=== PATIENT | female | born 1985 | race Caucasian/White ===

== ENCOUNTER 2017-02-03 18:31 | Emergency (ER) | payer OTHER ==
[~2017-02-03] VITALS: Ht 167.6 cm; Wt 102.0 kg
[~2017-02-03 18:31] MED LIST: AZIT500T2 PO; IBUP-2029
[2017-02-03 18:38] VITALS: BP 130/75
== END 2017-02-03 20:45 | disposition left against medical advice (07) ==
LOC: ER 18:38
DX: R10.9 Unspecified abdominal pain (principal); Z53.21 Procedure and treatment not carried out due to patient leaving prior to being seen by health care provider

== ENCOUNTER 2017-04-01 10:41 | Emergency (ER) | payer OTHER ==
[~2017-04-01] VITALS: Ht 167.6 cm; Wt 100.0 kg
[2017-04-01] MEDS ORDERED: SODIUM CHLORIDE 0.9% 1,000 ML IV ONE (11:35)
[2017-04-01] MEDS ORDERED: MORPHINE SULFATE 4 MG/ML CPJ (NOT FOR IM USE) IV ONE (11:45)
[2017-04-01] MEDS ORDERED: ONDANSETRON HCL 4MG/2ML VIAL IV ONE (11:45)
[2017-04-01 12:07] LABS: BASOPHILS % 0.5 % (0.0-2.0); EOSINOPHILS % 1.4 % (0.0-5.0); HEMATOCRIT. 37.5 % (36.0-48.0); HEMOGLOBIN. 12.7 g/dL (12.0-16.0); LYMPHOCYTES % 21.2 % (20.0-50.0); MEAN CORPUSCULAR HEMOGLOBIN 28.6 pg (28.0-32.0); MEAN PLATELET VOLUME 7.6 fl (7.4-10.4); MONOCYTES % 5.2 % (2.0-8.0); NEUTROPHILS % 71.7 % (40.0-76.0); PLATELET 371 x1000/uL (130-400); RED BLOOD CELL COUNT 4.46 mill/uL (4.2-5.4); RED CELL DISTRIBUTION WIDTH 14.1 % (11.6-14.6)
[2017-04-01 12:21] LABS: PARTIAL THROMBOPLASTIN TIME 27.3 sec (23.4-31.0); PROTHROMBIN TIME 10.6 sec (9.4-11.6)
[2017-04-01 12:22] LABS: CARBON DIOXIDE 27 mEq/L (21-32); CHLORIDE 102 mEq/L (98-107); TROPONIN I < 0.02 ng/mL (0.00-0.04)
[2017-04-01 12:23] LABS: UCG SCREEN NEGATIVE
[2017-04-01] MEDS ORDERED: KETOROLAC 15MG/ML VIAL IV ONE (15:15)
[2017-04-01] MEDS ORDERED: ONDANSETRON HCL 4MG/2ML VIAL IM ONE (15:15)
[2017-04-01 17:20] VITALS: BP 129/76
== END 2017-04-01 17:52 | disposition home or self-care (01) ==
LOC: ER 12:00
DX: R51 Headache (principal)
CPT/HCPCS: 36415; 70450; 71010; 80053; 81025; 83690; 84484; 85025; 85610; 85730; 93005; 96361; 96372; 96374; 96375; 99285; J1885; J2270; J2405; J7030; Z7610

== ENCOUNTER 2017-06-10 20:27 | Emergency (ER) | payer OTHER ==
[~2017-06-10] VITALS: Ht 167.6 cm; Wt 107.0 kg
[2017-06-10 20:30] VITALS: BP 125/79
[2017-06-10] MEDS ORDERED: DIPHENHYDRAMINE 50MG CAPSULE PO ONE (21:30)
== END 2017-06-10 22:11 | disposition home or self-care (01) ==
LOC: ER 21:34
DX: L03.113 Cellulitis of right upper limb (principal); L03.115 Cellulitis of right lower limb
CPT/HCPCS: 81025; 99283; Q0163

== ENCOUNTER 2017-07-24 16:04 | Emergency (ER) | payer OTHER ==
[~2017-07-24] VITALS: Ht 167.6 cm; Wt 104.0 kg
[2017-07-24 23:30] VITALS: BP 116/83
== END 2017-07-25 00:33 | disposition home or self-care (01) ==
LOC: ER 16:43
DX: T63.301A Toxic effect of unspecified spider venom, accidental (unintentional), initial encounter (principal); F41.0 Panic disorder [episodic paroxysmal anxiety]; W57.XXXA Bitten or stung by nonvenomous insect and other nonvenomous arthropods, initial encounter; Y93.89 Activity, other specified; Y92.89 Other specified places as the place of occurrence of the external cause; Y99.8 Other external cause status
CPT/HCPCS: 81025; 93005; 99283

== ENCOUNTER 2017-10-04 07:06 | Emergency (ER) | payer OTHER ==
[~2017-10-04] VITALS: Ht 167.6 cm; Wt 95.0 kg
[2017-10-04] MEDS ORDERED: ACETAMINOPHEN WITH CODEINE 120-12MG/5ML UDC PO ONE (08:15)
[2017-10-04] MEDS ORDERED: PENICILLIN G BENZATHINE 1,200,000 UNITS/2ML SYR IM ONE (08:15)
[2017-10-04] MEDS ORDERED: DEXAMETHASONE 10 MG/ML VIAL IM ONE (08:15)
[2017-10-04 08:28] VITALS: BP 134/88
== END 2017-10-04 08:30 | disposition home or self-care (01) ==
LOC: ER 07:51
DX: J02.9 Acute pharyngitis, unspecified (principal); Z98.890 Other specified postprocedural states
CPT/HCPCS: 81025; 96372; 99284; J0561; J1100

== ENCOUNTER 2017-10-12 11:38 | Emergency (ER) | payer OTHER ==
[~2017-10-12] VITALS: Ht 167.6 cm; Wt 102.0 kg
[2017-10-12 12:32] VITALS: BP 133/81
[2017-10-12] MEDS ORDERED: ACETAMINOPHEN 325MG TABLET PO ONE (12:45)
== END 2017-10-12 13:46 | disposition home or self-care (01) ==
LOC: ER 12:41
DX: S00.03XA Contusion of scalp, initial encounter (principal); Z98.890 Other specified postprocedural states; W22.03XA Walked into furniture, initial encounter; Y93.89 Activity, other specified; Y92.018 Other place in single-family (private) house as the place of occurrence of the external cause
CPT/HCPCS: 99282

== ENCOUNTER 2018-02-19 07:52 | Emergency (ER) | payer OTHER ==
[~2018-02-19] VITALS: Ht 172.7 cm; Wt 91.0 kg
[2018-02-19 07:56] VITALS: BP 150/95
[2018-02-19] MEDS ORDERED: KETOROLAC 30MG/ML VIAL IV ONE (08:15)
[2018-02-19] MEDS ORDERED: ACETAMINOPHEN WITH CODEINE 300/30MG TABLET PO ONE (08:15)
[2018-02-19] MEDS ORDERED: BACITRACIN ZINC 15GM TUBE TOP ONE (08:15)
== END 2018-02-19 09:30 | disposition home or self-care (01) ==
LOC: ER 07:52
DX: S10.81XA Abrasion of other specified part of neck, initial encounter (principal); M25.561 Pain in right knee; R03.0 Elevated blood-pressure reading, without diagnosis of hypertension; M25.571 Pain in right ankle and joints of right foot; V47.5XXA Car driver injured in collision with fixed or stationary object in traffic accident, initial encounter; Y93.89 Activity, other specified; Y92.488 Other paved roadways as the place of occurrence of the external cause
CPT/HCPCS: 71045; 73562; 73610; 81025; 96374; 99284; J1885

== ENCOUNTER 2020-04-04 18:50 | Emergency (ER) | payer OTHER ==
[~2020-04-04] VITALS: Ht 167.6 cm; Wt 104.0 kg
[2020-04-04 21:16] LABS: BASOPHILS % 0.3 % (0.0-2.0); EOSINOPHILS % 1.7 % (0.0-5.0); HEMATOCRIT. 40.6 % (36.0-48.0); HEMOGLOBIN. 13.7 g/dL (12.0-16.0); LYMPHOCYTES % 29.6 % (20.0-50.0); MEAN CORPUSCULAR HEMOGLOBIN 28.2 pg (28.0-32.0); MEAN CORPUSCULAR VOLUME 83.6 fL (81.0-99.0); MEAN PLATELET VOLUME 7.9 fl (7.4-10.4); MONOCYTES % 5.6 % (2.0-8.0); NEUTROPHILS % 62.8 % (40.0-76.0); PLATELET 363 x1000/uL (130-400); RED BLOOD CELL COUNT 4.85 mill/uL (4.2-5.4); RED CELL DISTRIBUTION WIDTH 14.3 % (11.6-14.6)
[2020-04-04 21:20] LABS: CHLORIDE 101 mEq/L (98-107)
[2020-04-04 21:23] LABS: HCG SCREEN NEGATIVE
[2020-04-04 21:41] LABS: PROTHROMBIN TIME 10.5 sec (9.6-11.0)
[2020-04-04 22:36] VITALS: BP 132/83
== END 2020-04-04 22:37 | disposition home or self-care (01) ==
LOC: ER 18:50
DX: R00.2 Palpitations (principal); Z98.890 Other specified postprocedural states
CPT/HCPCS: 36415; 71045; 80053; 84484; 84703; 85025; 93005; 99285

== ENCOUNTER 2021-01-29 18:54 | Emergency (ER) | payer OTHER ==
[~2021-01-29] VITALS: Ht 172.7 cm; Wt 90.0 kg
[2021-01-29] MEDS ORDERED: KETOROLAC 60MG/2ML VIAL IM ONE (20:00)
[2021-01-29] MEDS ORDERED: ONDANSETRON 4MG ODT PO ONE (20:00)
[2021-01-29 20:21] VITALS: BP 139/84
[2021-01-29 21:57] LABS: CLARITY URINE CLEAR (CLEAR); COLOR URINE YELLOW (YELLOW); KETONES URINE NEGATIVE (NEGATIVE); LEUKOCYTE ESTERASE URINE 1+ (NEGATIVE); NITRITE URINE NEGATIVE (NEGATIVE); OCCULT BLOOD URINE NEGATIVE (NEGATIVE); PH URINE 6.5 (4.5-8.0); PROTEIN URINE NEGATIVE (NEGATIVE); SPECIFIC GRAVITY URINE 1.017 (1.005-1.030); UROBILINOGEN URINE 0.2 E.U./dL (0.2-1.0)
[2021-01-29] MEDS ORDERED: IBUP-2029 MT (22:03)
[2021-01-29] MEDS ORDERED: ONDA4TAB11 PO (22:03)
== END 2021-01-29 23:00 | disposition home or self-care (01) ==
LOC: ER 18:54
DX: R11.2 Nausea with vomiting, unspecified (principal); B34.8 Other viral infections of unspecified site; Z79.899 Other long term (current) drug therapy; Z20.822 Contact with and (suspected) exposure to COVID-19
CPT/HCPCS: 81003; 87635; 96372; 99283; J1885; Q0162

== ENCOUNTER 2021-06-24 13:22 | Emergency (ER) | payer MEDICAID, OTHER ==
[~2021-06-24] VITALS: Ht 167.6 cm; Wt 100.0 kg
[~2021-06-24 13:22] MED LIST changes: +IBUP-2029 MT; +ONDA4TAB11 PO
[2021-06-24 13:25] VITALS: BP 128/83
[2021-06-24] MEDS ORDERED: PREDNISONE 20MG TABLET PO ONE (13:30)
[2021-06-24] MEDS ORDERED: ALBUTEROL (0.083%) 2.5MG/3ML NEB HHN ONE (13:30)
[2021-06-24 16:09] LABS: BASOPHILS % 0.2 % (0.0-2.0); EOSINOPHILS % 0.3 % (0.0-5.0); HEMATOCRIT. 44.5 % (36.0-48.0); HEMOGLOBIN. 14.7 g/dL (12.0-16.0); LYMPHOCYTES % 21.2 % (20.0-50.0); MEAN CORPUSCULAR HEMOGLOBIN 28.8 pg (28.0-32.0); MEAN PLATELET VOLUME 7.6 fl (7.4-10.4); MONOCYTES % 4.6 % (2.0-8.0); NEUTROPHILS % 73.7 % (40.0-76.0); PLATELET 298 x1000/uL (130-400); RED BLOOD CELL COUNT 5.12 mill/uL (4.2-5.4)
[2021-06-24 16:16] LABS: CHLORIDE 105 mEq/L (98-107)
[2021-06-24] MEDS ORDERED: AZITHROMYCIN 500 MG TABLET PO ONE (16:30)
[2021-06-24] MEDS ORDERED: ACET-2708 MT (16:33)
[2021-06-24] MEDS ORDERED: AZIT500T8 MT (16:33)
[2021-06-24] MEDS ORDERED: P50 MT (16:43)
== END 2021-06-24 18:23 | disposition home or self-care (01) ==
LOC: ER 13:22
DX: J18.9 Pneumonia, unspecified organism (principal); U07.1 COVID-19; Z79.899 Other long term (current) drug therapy
CPT/HCPCS: 36415; 71045; 80048; 81025; 84484; 85025; 85379; 93005; 93970; 94640; 99285; C9803; J7512; U0003; U0005; Z7610

== ENCOUNTER 2021-09-27 14:38 | Emergency (ER) | payer OTHER ==
[~2021-09-27] VITALS: Ht 167.6 cm; Wt 100.0 kg
[~2021-09-27 14:38] MED LIST changes: +ACET-2708 MT; +AZIT500T8 MT; +P50 MT
[2021-09-27] MEDS ORDERED: LIDOCAINE HCL/PF 1% 10 MG/ML 5ML VIAL INFIL ONE (15:00)
[2021-09-27] MEDS ORDERED: LIDOCAINE HCL 1% 20ML VIAL (Pyxis) INJ INFIL NR (15:00)
[2021-09-27] MEDS: TETANUS, DIPHTHERIA, PERTUSSIS VAC/PF 0.5ML (>10YR OLD) IM ONE (15:26)
[2021-09-27] MEDS: IBUPROFEN 600MG TABLET PO ONE (15:28)
[2021-09-27] MEDS: ACETAMINOPHEN 325MG TABLET PO ONE (15:28)
[2021-09-27] MEDS: BACITRACIN ZINC OINT UDPKT TOP ONE (15:29)
[2021-09-27 15:44] VITALS: BP 131/88
== END 2021-09-27 16:00 | disposition home or self-care (01) ==
LOC: ER 14:38
DX: S61.211A Laceration without foreign body of left index finger without damage to nail, initial encounter (principal); X58.XXXA Exposure to other specified factors, initial encounter; Y93.89 Activity, other specified; Y92.89 Other specified places as the place of occurrence of the external cause; Y99.8 Other external cause status
CPT/HCPCS: 99283; A4217; J3490; Z7610

== ENCOUNTER 2022-02-05 23:22 | Emergency (ER) | payer OTHER ==
[~2022-02-05] VITALS: Ht 167.6 cm; Wt 113.8 kg
[2022-02-05] MEDS ORDERED: SODIUM CHLORIDE 0.9% 1,000 ML IV ONE (23:45)
[2022-02-06 00:54] LABS: CLARITY URINE CLEAR (CLEAR); COLOR URINE ORANGE (YELLOW); KETONES URINE NEGATIVE (NEGATIVE); LEUKOCYTE ESTERASE URINE TRACE (NEGATIVE); NITRITE URINE NEGATIVE (NEGATIVE); OCCULT BLOOD URINE 3+ (NEGATIVE); PH URINE 6.5 (4.5-8.0); PROTEIN URINE NEGATIVE (NEGATIVE); SPECIFIC GRAVITY URINE 1.016 (1.005-1.030)
[2022-02-06 01:11] LABS: *AMPHETAMINES SCREEN URINE NEGATIVE (NEGATIVE); *BARBITURATES SCREEN URINE NEGATIVE (NEGATIVE); *BENZODIAZEPINES SCREEN URINE NEGATIVE (NEGATIVE); *COCAINE SCREEN URINE NEGATIVE (NEGATIVE); CANNABINOID URINE SCREEN NEGATIVE (NEGATIVE); METHADONE URINE SCREEN NEGATIVE (NEGATIVE); OPIATES URINE SCREEN NEGATIVE (NEGATIVE); PHENCYCLIDINE URINE SCREEN NEGATIVE (NEGATIVE)
[2022-02-06 01:23] LABS: BASOPHILS % 0.4 % (0.0-2.0); EOSINOPHILS % 2.1 % (0.0-5.0); HEMATOCRIT. 39.7 % (36.0-48.0); HEMOGLOBIN. 12.9 g/dL (12.0-16.0); MEAN CORPUSCULAR HEMOGLOBIN 28.4 pg (28.0-32.0); MEAN CORPUSCULAR VOLUME 87.6 fL (81.0-99.0); MEAN PLATELET VOLUME 7.5 fl (7.4-10.4); MONOCYTES % 4.8 % (2.0-8.0); NEUTROPHILS % 59.7 % (40.0-76.0); PLATELET 325 x1000/uL (130-400); RED BLOOD CELL COUNT 4.54 mill/uL (4.2-5.4); RED CELL DISTRIBUTION WIDTH 13.9 % (11.6-14.6)
[2022-02-06 02:01] LABS: CHLORIDE 106 mEq/L (98-107)
[2022-02-06 02:10] LABS: PROTHROMBIN TIME 10.4 sec (9.6-11.0)
[2022-02-06 02:12] LABS: B-HCG QUANTITATIVE < 1 mIU/mL (<3)
[2022-02-06] MEDS ORDERED: IBUP-2029 MT (02:59)
[2022-02-06] MEDS ORDERED: IBUPROFEN 600MG TABLET PO ONE (03:00)
[2022-02-06 03:15] VITALS: BP 135/86
== END 2022-02-06 04:15 | disposition home or self-care (01) ==
LOC: ER 23:55
DX: N93.8 Other specified abnormal uterine and vaginal bleeding (principal); N83.202 Unspecified ovarian cyst, left side; N85.00 Endometrial hyperplasia, unspecified
CPT/HCPCS: 36415; 76830; 76856; 80053; 80305; 81003; 81025; 84702; 85025; 85610; 86850; 86900; 86901; 99284; J7030

== ENCOUNTER 2022-05-16 00:06 | Emergency (ER) | payer OTHER ==
[~2022-05-16] VITALS: Ht 167.6 cm; Wt 112.3 kg
[2022-05-16] MEDS ORDERED: DIPHENHYDRAMINE 50MG/ML VIAL IV ONE (02:00)
[2022-05-16] MEDS ORDERED: DEXAMETHASONE 10 MG/ML VIAL IV ONE (02:00)
[2022-05-16 02:45] VITALS: BP 140/80
[2022-05-16] MEDS ORDERED: DIPH25TA62 MT (03:13)
[2022-05-16] MEDS ORDERED: PRED10TA MT (03:13)
== END 2022-05-16 04:57 | disposition home or self-care (01) ==
LOC: ER 00:06
DX: L23.3 Allergic contact dermatitis due to drugs in contact with skin (principal); T49.4X5A Adverse effect of keratolytics, keratoplastics, and other hair treatment drugs and preparations, initial encounter; Y92.012 Bathroom of single-family (private) house as the place of occurrence of the external cause
CPT/HCPCS: 96374; 96375; 99284; J1100; J1200

== ENCOUNTER 2023-07-07 21:39 | Emergency (ER) | payer OTHER ==
[~2023-07-07] VITALS: Ht 167.6 cm; Wt 108.9 kg
[~2023-07-07 21:39] MED LIST changes: +DIPH25TA62 MT; +PRED10TA MT
[2023-07-07 22:17] VITALS: BP 144/88; PULSE 83; RESP 16; TEMP 98.9; O2SAT 100
== END 2023-07-08 01:52 | disposition home or self-care (01) ==
LOC: ER 21:39
DX: J06.9 Acute upper respiratory infection, unspecified (principal); Z98.890 Other specified postprocedural states
CPT/HCPCS: 71045; 87804; 99284

== ENCOUNTER 2024-01-26 22:11 | Emergency (ER) | payer OTHER ==
[~2024-01-26] VITALS: Ht 167.6 cm; Wt 116.0 kg
[2024-01-26 22:47] VITALS: O2SAT 98
[2024-01-27] MEDS ORDERED: LIDO700A15 TP (00:38)
[2024-01-27] MEDS ORDERED: AZIT250T12 MT (00:38)
[2024-01-27] MEDS ORDERED: CYCL10TA21 MT (00:38)
[2024-01-27 01:31] VITALS: BP 122/66; PULSE 90; RESP 16; TEMP 98.4
== END 2024-01-27 01:25 | disposition home or self-care (01) ==
LOC: ER 22:11
DX: R05.9 Cough, unspecified (principal); M54.50 Low back pain, unspecified; Z79.899 Other long term (current) drug therapy
CPT/HCPCS: 71045; 99283